=== PATIENT | female | born 1990 | race Caucasian/White ===

== ENCOUNTER 2021-03-10 11:28 | Emergency (ER) | payer OTHER ==
[~2021-03-10] VITALS: Ht 157.5 cm; Wt 59.1 kg
--- NOTE | 2021-03-10 12:20 | REPVR ---
PROCEDURE INFORMATION: Exam: CT Head Without Contrast Exam date and time: 03/10/2021 12:00 PM Age: 30 years old Clinical indication: Injury or trauma; Fall; Blunt trauma (contusions or hematomas); Additional info: Trauma / lac TECHNIQUE: Imaging protocol: Computed tomography of the head without contrast. Radiation optimization: All CT scans at this facility use at least one of these dose optimization techniques: automated exposure control; mA and/or kV adjustment per patient size (includes targeted exams where dose is matched to clinical indication); or iterative reconstruction. COMPARISON: No relevant prior studies available. FINDINGS: Brain: Examination of the brain demonstrates normal structure and attenuation.The cortical duke / white matter interfaces are preserved throughout the brain.No acute infarction, masses or hemorrhage is seen. Cerebral ventricles: The ventricular system is not dilated and is appropriate for the patient's age. Paranasal sinuses: Visualized sinuses are unremarkable. No fluid levels. Mastoid air cells: Visualized mastoid air cells are well aerated. Bones/joints: Unremarkable. No acute fracture. Soft tissues: Scalp hematoma is seen in the right parietal region. IMPRESSION: 1. No acute infarction, masses or hemorrhage is seen. No acute intracranial abnormality is identified. 2. Scalp hematoma is seen in the right parietal region. Electronically signed by: Bebeto Casas On 03/10/2021 12:20:25 PM
[2021-03-10] MEDS ORDERED: ACETAMINOPHEN 500 MG TAB PO ONE (15:25)
[2021-03-10] MEDS ORDERED: ONDANSETRON 4 MG ORAL DISINTEGRATING TAB PO ONE (15:50)
[2021-03-10] MEDS ORDERED: ISOVUE-370 76% 100ML VIAL As Ordered ONE (16:36)
[2021-03-10 16:42] LABS: BASO % 0.3 % (0.0-1.0); EOS % 0.2 % (0.0-3.0); HEMATOCRIT 39.3 % (36.0-47.0); HEMOGLOBIN 12.9 g/dl (12.0-15.5); LYMPH # 1.2 10^3/uL (1.5-5.0); LYMPH % 9.6 % (24.0-44.0); MEAN CORPUSCULAR HEMOGLOBIN 30.1 pg (27.0-33.0); MEAN CORPUSCULAR HGB CONC 32.8 g/dl (32.0-36.5); MEAN CORPUSCULAR VOLUME 91.6 fl (80.0-96.0); MONO # 0.9 10^3/uL (0.0-0.8); MONO % 7.4 % (2.0-8.0); NEUTROPHILS # 10.3 10^3/uL (1.5-8.5); NEUTROPHILS % 82.1 % (36.0-66.0); PLATELET COUNT, AUTOMATED 311 10^3/uL (150-450); RED BLOOD COUNT 4.29 10^6/uL (4.00-5.40); WHITE BLOOD COUNT 12.6 10^3/uL (4.0-10.0)
--- NOTE | 2021-03-10 17:03 | REP ---
INDICATION: trauma/thrown from horse COMPARISON: None TECHNIQUE: Axial contrast enhanced images from the thoracic inlet to the upper abdomen with coronal and sagittal reformations using 75 ml Isovue 370 intravenous contrast material. This CT examination was performed using the following dose reduction techniques: Automated exposure control, adjustment of mA and/or kv according to the patient's size, and use of iterative reconstruction technique. FINDINGS: The bilateral lung cruz are well aerated and clear. No consolidation/contusion, effusion, or pneumothorax. Mediastinum is normal and without evidence for mediastinal injury. Small residual thymic tissue noted. No adenopathy. Musculoskeletal structures appear intact. IMPRESSION: Normal contrast-enhanced chest CT. No acute mediastinal or pleuroparenchymal process. No evidence for trauma/injury. <Electronically signed by Adan Bush > 03/10/21 [id number]
--- NOTE | 2021-03-10 17:07 | REP ---
INDICATION: trauma, diffuse ttp, ecchymosis. COMPARISON: None TECHNIQUE: Axial contrast-enhanced images from the lung bases to the pubic symphysis using 100 cc Isovue 370 intravenous contrast material. Coronal and sagittal reformations obtained. This CT examination was performed using the following dose reduction techniques: Automated exposure control, adjustment of mA and/or kv according to the patient's size, and the use of iterative reconstruction technique. FINDINGS: No evidence for solid organ injury. Liver, spleen, pancreas, bilateral adrenal glands and kidneys are normal. Cholelithiasis noted. The enteric system including stomach, small, and large bowel appears normal. No evidence for obstruction or acute inflammatory process. Normal terminal ileum and appendix are identified in the right lower quadrant. Pelvis demonstrates normal bladder and age-appropriate uterus/adnexa. No ascites. No free air. No intraperitoneal or retroperitoneal adenopathy. Abdominal aorta and vasculature appear normal. Musculoskeletal structures are intact and without acute osseous abnormality. IMPRESSION: No acute abdominopelvic pathology or trauma/injury appreciated. Cholelithiasis. <Electronically signed by Adan Bush > 03/10/21 [id number]
[2021-03-10 17:10] LABS: ALBUMIN 3.9 GM/DL (3.2-5.2); ALT/SGPT 53 U/L (12-78); BILIRUBIN,DIRECT 0.2 MG/DL (0.0-0.2); BILIRUBIN,TOTAL 0.6 MG/DL (0.2-1.0); LIPASE 95 U/L (73-393); TOTAL PROTEIN 7.9 GM/DL (6.4-8.2)
--- NOTE | 2021-03-10 17:40 | REPVR ---
PROCEDURE INFORMATION: Exam: CT Cervical Spine Without Contrast Exam date and time: 03/10/2021 4:44 PM Age: 30 years old Clinical indication: Injury or trauma; Fall; Blunt trauma TECHNIQUE: Imaging protocol: Computed tomography images of the cervical spine without contrast. Radiation optimization: All CT scans at this facility use at least one of these dose optimization techniques: automated exposure control; mA and/or kV adjustment per patient size (includes targeted exams where dose is matched to clinical indication); or iterative reconstruction. COMPARISON: No relevant prior studies available. FINDINGS: Bones/joints: No anterior wedging deformity. No acute lucent fracture lines visualized. Spondylitic changes are most prominent at the C4-C5 and C5-C6 levels. Discs/Spinal canal/Neural foramina: No severe central canal stenosis demonstrated by CT. Neural foraminal stenosis is seen on the left at C4-C5 and bilaterally at C5-C6. Lungs: Lung apices are normal. IMPRESSION: 1. No acute cervical spinal injury demonstrated by CT. 2. Spondylitic changes of the cervical spine, with no severe central canal stenosis. Electronically signed by: Sharmin Holm On 03/10/2021 17:40:03 PM
--- NOTE | 2021-03-10 17:50 | REPVR ---
PROCEDURE INFORMATION: Exam: CT Neck With Contrast Exam date and time: 03/10/2021 4:44 PM Age: 30 years old Clinical indication: Injury or trauma; Fall; Blunt trauma (contusions or hematomas); Additional info: Trauma/anterior bruising TECHNIQUE: Imaging protocol: Computed tomography images of the neck with contrast. Radiation optimization: All CT scans at this facility use at least one of these dose optimization techniques: automated exposure control; mA and/or kV adjustment per patient size (includes targeted exams where dose is matched to clinical indication); or iterative reconstruction. Contrast material: ISOVUE 370; Contrast volume: 75 ml; Contrast route: INTRAVENOUS (IV); COMPARISON: CT Spine,cervical w/o contrast 03/10/2021 4:33 PM FINDINGS: Nasopharynx: Unremarkable. Oropharynx: Unremarkable. No significant tonsillar enlargement. Hypopharynx: Unremarkable. Larynx: Unremarkable. Normal epiglottis. Retropharyngeal space: Unremarkable. Submandibular/Parotid glands: Normal. Glands are normal in size. Thyroid: Normal. No enlarged or calcified nodules. Lymph nodes: Unremarkable. No lymphadenopathy. Trachea: Visualized trachea is unremarkable. Lungs: Unremarkable as visualized. Bones/joints: Cervical spine described in separate report. No acute fracture. Soft tissues: There is mild infiltration of the superficial fat at the left anterior base of neck. IMPRESSION: 1. Mild infiltration of the superficial fat at the left anterior base of neck. 2. Otherwise normal neck CT. Electronically signed by: Sharmin Holm On 03/10/2021 17:50:16 PM
--- NOTE | 2021-03-10 18:19 | REP ---
INDICATION: L shoulder/clavicle pain/swelling/ ttp COMPARISON: None. TECHNIQUE: Three views left shoulder. FINDINGS: There is no evidence of acute fracture, dislocation, or intrinsic bone disease.Joint spaces appear unremarkable. IMPRESSION: No fracture or dislocation. <Electronically signed by Edin Rachel > 03/10/21 [id number]
[2021-03-10] MEDS ORDERED: NS 1,000 ML IV ONE (18:20)
--- NOTE | 2021-03-10 18:22 | REP ---
INDICATION: trauma COMPARISON: None. TECHNIQUE: Four views left knee. FINDINGS: There is no evidence of acute fracture, dislocation, or intrinsic bone disease.The joint spaces are unremarkable. There is possibly a small joint effusion. IMPRESSION: No fracture or dislocation. Possible small joint effusion. <Electronically signed by Edin Rachel > 03/10/21 [id number]
--- NOTE | 2021-03-10 18:23 | REP ---
INDICATION: trauma COMPARISON: None. TECHNIQUE: Four views right elbow. FINDINGS: There is no evidence of acute fracture, dislocation, or intrinsic bone disease.There is no radiographic evidence of a joint effusion. IMPRESSION: No fracture or dislocation. <Electronically signed by Edin Rachel > 03/10/21 [id number]
[2021-03-10 19:56] LABS: ETHYL ALCOHOL (ETHANOL) < 0.003 % (0.000-0.010)
[2021-03-10 20:24] LABS: AMPHETAMINES LEVEL URINE POSITIVE (NEGATIVE); BARBITURATES URINE NEGATIVE (NEGATIVE); BENZODIAZEPINES URINE NEGATIVE (NEGATIVE); CANNABINOIDS URINE POSITIVE (NEGATIVE); COCAINE METABOLITE URINE NEGATIVE (NEGATIVE); METHADONE URINE NEGATIVE (NEGATIVE); OPIATES URINE NEGATIVE (NEGATIVE); PHENCYCLIDINE URINE NEGATIVE (NEGATIVE)
[2021-03-10] MEDS ORDERED: IBUP-1022 PO (22:42)
[2021-03-10 22:44] VITALS: BP 92/51
--- NOTE | 2021-03-11 19:41 | ECGEPIP ---
[facility] - ED Test Date: 2021-03-10 Pat Name: DEVIN ONEILL Department: Room: - Gender: Female [employer] Operator: robyn : 1990 Requested By: THELMA Marquez PA-C Order Number: [id number] Reading MD: Denise Macias Measurements Intervals [place] Rate: 73 P: -2 OK: 108 QRS: 85 QRSD: 70 T: 48 QT: 452 QTc: 497 Interpretive Statements Sinus rhythm with short OK Nonspecific T wave abnormality No prior Electronically Signed on 03-11-2021 19:41:45 EDT by Denise Macias
== END 2021-03-10 23:07 | disposition home or self-care (01) ==
LOC: M ED 11:28 → EDBD 11:28 → M ED 23:07
DX: S01.01XA Laceration without foreign body of scalp, initial encounter (principal); S50.311A Abrasion of right elbow, initial encounter; S20.219A Contusion of unspecified front wall of thorax, initial encounter; S10.93XA Contusion of unspecified part of neck, initial encounter; S80.02XA Contusion of left knee, initial encounter; S50.01XA Contusion of right elbow, initial encounter; S06.0X0A Concussion without loss of consciousness, initial encounter; M25.462 Effusion, left knee; V80.010A Animal-rider injured by fall from or being thrown from horse in noncollision accident, initial encounter; K80.20 Calculus of gallbladder without cholecystitis without obstruction; F15.10 Other stimulant abuse, uncomplicated; F12.10 Cannabis abuse, uncomplicated; J45.909 Unspecified asthma, uncomplicated; F31.9 Bipolar disorder, unspecified; F17.200 Nicotine dependence, unspecified, uncomplicated
CPT/HCPCS: 36415; 70450; 70491; 71260; 72125; 73030; 73080; 73564; 74177; 80047; 80076; 80307; 81001; 82077; 83690; 84702; 85025; 93005; 99284; Q0162; Q9967